=== PATIENT | male | born 1950 | race Caucasian/White ===

== ENCOUNTER → 2023-12-21 13:02 | Outpatient (REF) | payer OTHER, SELFPAY | LOC: HWRAD 13:02 | PROVIDERS: ATTENDING PHYSICIAN Family Medicine | DX: R07.81 Pleurodynia (principal); R10.9 Unspecified abdominal pain | CPT/HCPCS: 71101; 74018 ==

== ENCOUNTER 2023-12-25 19:52 | Inpatient (IN) | payer OTHER, SELFPAY ==
[2023-12-25] VITALS (8 sets, daily range): BP systolic 129–184; BP diastolic 61–85; BMI 28.3; BMI 30.9
[2023-12-25 12:32] LABS: Urine Albumin Trace (Neg - Trace); Urine Bilirubin 1+ (Negative); Urine Character Clear (Clear); Urine Color Amber; Urine Glucose Negative (Negative); Urine Ketone Trace (Negative); Urine Leukocyte 1+ (Negative); Urine Nitrite Negative (Negative); Urine Occult Blood 4+ (Negative); Urine Urobilinogen Negative (Neg - 1+)
[2023-12-25 12:49] LABS: Urine Mucus Many; Urine Red Blood Cell 50-60 /HPF (0-2)
[2023-12-25 12:50] LABS: Urine Bacteria Few (Negative); Urine White Cell 26-30 /HPF (0-5)
--- NOTE | 2023-12-25 13:18 | ED.GENMED ---
History of Present Illness
<DO Mabel Moser Filed: 12/25/23 13:20>
General
Chief Complaint: Flank Pain
Source: patient
Time Seen by Provider: 12/25/23 13:08
History of Present Illness
History of Present Illness:
73-year-old male presents to the emergency room complaining of left-sided flank pain. Patient began having left-sided flank pain about a week ago. Symptoms began in the left lower abdomen and then moved to the left flank. They exist in both areas
at the same time are back and forth. Currently the patient has mild pain. He denies fever, chills, nausea or vomiting. Nothing makes the pain better or worse. Patient seen by his primary care doctor who ordered a urine test. Based on your
testing total to come to the emergency room.
Past History
<DO Mabel Moser Filed: 12/25/23 13:20>
Past History
ED Past Medical History: HTN and Psychiatric (Depression)
ED Past Surgical History: Appendectomy and Other (Gerry hernia repair, Prostatectomy)
Social History
Tobacco: Non-smoker
Alcohol: None
Personal: Single
Living: alone
Phy Exam
<DO Mabel Moser Filed: 12/25/23 13:20>
Physical Exam
Physical Exam:
General: Awake, Alert, Oriented X3. No acute distress.
Vitals: unremarkable
Head: Atraumatic
Eyes: Pupils equal, EOMI
Throat: Airway intact, no exudates
Neck: Trachea midline
Lungs: Clear and equal b/l
Heart: Regular rate, no murmurs
Abd: Soft, Nontender, No pulsatile mass
Back: No significant CVA tenderness to percussion
Neuro: Nonfocal
Skin: Warm, dry, no rash
Extremities: pulses equal b/l, no edema
Course
<Josiah NaveedMarcelle Mittal, DO - Last Filed: 12/25/23 13:20>
Orders/Labs/Results
Orders:
Orders
12/25/23 12:10
Urinalysis Reflex To Culture Urgent
Date Specimen was Collected: 12/25/23
Time Specimen was Collected: 12:06
Urine Microscopic Reflex Cult Urgent
Urine Culture Urgent
LIA Source: U
Specimen Description:
Date Specimen was Collected: 12/25/23
Time Specimen was Collected: 12:06
12/25/23 13:18
CT Abd/pel Without Iv Or Oral Urgent
Comment:
Reason For Exam: left flank pain
12/25/23 13:23
Basic Metabolic Panel Urgent
Complete Blood Count/With Diff Urgent
12/25/23 17:39
Cefepime HCl [Maxipime] 2,000 mg IV NOW STA
12/25/23 17:42
CefTRIAXone [Rocephin] 2,000 mg IV NOW STA
Abnormal Lab Results
12/25/23 12/25/23
12:10 13:23
RBC 4.66 L 10^6/uL
(4.70-6.10)
MPV 11.3 H fL
(7.4-10.4)
Carbon Dioxide 31 H mmol/L
(22-30)
BUN 23 H mg/dl
(9-20)
Glucose 103 H mg/dl
(70-99)
Urine Ketones Trace A
(Negative)
Ur Occult Blood Reflex 4+ A
(Negative)
Urine Bilirubin 1+ A
(Negative)
Leukocyte Esterase Rfl 1+ A
(Negative)
Urine RBC 50-60 A /HPF
(0-2)
Urine WBC (Reflex) 26-30 A /HPF
(0-5)
Urine Bacteria (Reflex) Few A
(Negative)
12/25/23 13:23
12/25/23 13:23
Vital Signs
Initial and Last Documented VS:
Initial Vital Signs
Temp Pulse Resp BP Pulse Ox
97.8 F 71 18 184/84 98
12/25/23 11:46 12/25/23 11:46 12/25/23 11:46 12/25/23 11:46 12/25/23 11:46
Last Documented Vital Signs
Temp Pulse Resp BP Pulse Ox
98.9 F 64 16 133/85 99
12/25/23 17:54 12/25/23 17:54 12/25/23 17:54 12/25/23 17:54 12/25/23 17:54
<Fidel Marquez, DO - Last Filed: 12/25/23 18:11>
Orders/Labs/Results
Orders:
Orders
12/25/23 12:10
Urinalysis Reflex To Culture Urgent
Date Specimen was Collected: 12/25/23
Time Specimen was Collected: 12:06
Urine Microscopic Reflex Cult Urgent
Urine Culture Urgent
LIA Source: U
Specimen Description:
Date Specimen was Collected: 12/25/23
Time Specimen was Collected: 12:06
12/25/23 13:18
CT Abd/pel Without Iv Or Oral Urgent
Comment:
Reason For Exam: left flank pain
12/25/23 13:23
Basic Metabolic Panel Urgent
Complete Blood Count/With Diff Urgent
12/25/23 17:39
Cefepime HCl [Maxipime] 2,000 mg IV NOW STA
12/25/23 17:42
CefTRIAXone [Rocephin] 2,000 mg IV NOW STA
Abnormal Lab Results
12/25/23 12/25/23
12:10 13:23
RBC 4.66 L 10^6/uL
(4.70-6.10)
MPV 11.3 H fL
(7.4-10.4)
Carbon Dioxide 31 H mmol/L
(22-30)
BUN 23 H mg/dl
(9-20)
Glucose 103 H mg/dl
(70-99)
Urine Ketones Trace A
(Negative)
Ur Occult Blood Reflex 4+ A
(Negative)
Urine Bilirubin 1+ A
(Negative)
Leukocyte Esterase Rfl 1+ A
(Negative)
Urine RBC 50-60 A /HPF
(0-2)
Urine WBC (Reflex) 26-30 A /HPF
(0-5)
Urine Bacteria (Reflex) Few A
(Negative)
12/25/23 13:23
12/25/23 13:23
Vital Signs
Initial and Last Documented VS:
Initial Vital Signs
Temp Pulse Resp BP Pulse Ox
97.8 F 71 18 184/84 98
12/25/23 11:46 12/25/23 11:46 12/25/23 11:46 12/25/23 11:46 12/25/23 11:46
Last Documented Vital Signs
Temp Pulse Resp BP Pulse Ox
98.9 F 64 16 133/85 99
12/25/23 17:54 12/25/23 17:54 12/25/23 17:54 12/25/23 17:54 12/25/23 17:54
<Fidel Marquez, DO - Last Filed: 12/25/23 18:11>
MDM/Problems Addressed
Differential Diagnosis Includes:
Urinary tract infection, kidney stone
MDM/Problems Addressed:
73-year-old male with left ureteral calculus, UTI. Patient will likely require stent. Does not appear septic at this time. Admit to hospitalist. Dr. Escalante, urology aware.
Chronic conditions affecting care: HTN, CAD and Cancer (Prostate cancer)
<Fidel Marquez, DO - Last Filed: 12/25/23 18:11>
*Radiology
Radiology exam reviewed: radiology read reviewed (CT abdomen pelvis shows 7 mm left proximal ureteral calculus)
*Pulse Oximetry
Patient hypoxic: no
*Critical Care Note
Total Time (30-74mins, 75-104mins- exclusive of procedures): Not Applicable
<Fidel Marquez, DO - Last Filed: 12/25/23 18:11>
Patient Management
Social determinants of health affecting care: Living situation
Discussion with other providers: Hospitalist and Community Service Officer (urology Dr. Escalante)
Escalation/DeEscalation of care consider admission/obs:
admit indicated
ED Attending Note
<Josiah Mittal DO - Last Filed: 12/25/23 13:20>
-
Portions of this chart may have been created with voice recognition software.� Occasional wrong word or��sound alike� substitutions may have occurred due to the inherent limitations of voice recognition software.
Discharge Plan
Departure
Patient Disposition: Admit
Date of Disposition: 12/25/23
Time of Disposition: 17:38
Admit to: Med/Surg
Presentation/result/management discussed w/ accepting MD/DO: Hospitalist
Patient with high blood pressure during this ER visit?: Yes
Condition: Good
Discharge Problem:
UTI (urinary tract infection), Calculus of proximal left ureter
Prescriptions:
No Action
amlodipine 10 MG tablet
10 mg PO HS
aspirin [Maria L Chewable Aspirin] 81 MG tablet,chewable
81 mg PO DAILY
propranolol 20 MG tablet
20 mg PO BID
hydroxyzine pamoate 25 mg capsule
25 mg PO QIDPRN PRN (Reason: anxiety/sleep)
Praluent Pen 75 mg/mL pen injector
75 mg SC Q2W
Referrals:
Antoni Friedman, DO [Family Provider] -
Interventions
Interventions:
*Risk Screen - Suicide Last Done: 12/25/23 11:46
*General Assessment Last Done: 12/25/23 11:52
*Neglect/Abuse Screening Last Done: 12/25/23 11:46
ED- Fall Risk Assessment Last Done: 12/25/23 12:36
WG-Aggqat-Unhswefpwq Assessment Last Done: 12/25/23 12:36
ED-Male Genitourinary Assessment Last Done: 12/25/23 12:36
Discharge Date and Time
Print Language: NEPALI
[2023-12-25 13:34] LABS: % Basophils 0.4 % (0-2); % Eosinophils 3.1 % (0-6); % Immature Granulocytes 0.1 % (0-0.5); % Monocytes 8.5 % (1.7-9.3); % Neutrophils 65.9 % (42.2-75.2); Absolute Eosinophils 0.2 10^3/uL (0-0.7); Absolute Lymphocytes 1.6 10^3/uL (1.2-3.4); Absolute Monocytes 0.6 10^3/uL (0.1-0.6); Absolute Neutrophils 4.9 10^3/uL (1.4-6.5); Hematocrit 41.6 % (39.0-52.0); Hemoglobin 14.2 g/dL (13.0-18.0); Mean Corp Hgb Conc. 34.1 g/dL (33.0-37.0); Mean Corpuscular Hgb 30.5 pg (27.0-31.0); Mean Corpuscular Volume 89.3 fL (80.0-94.0); Mean Platelet Volume 11.3 fL (7.4-10.4); Nucleated Red Blood Cells % 0 % (-); Platelet Count 222 10^3/uL (130-400); Red Blood Cell Count 4.66 10^6/uL (4.70-6.10); Red Cell Dist. Width 13.8 % (11.5-14.5); White Blood Cell Count 7.4 10^3/uL (4.8-10.8)
[2023-12-25 13:47] LABS: Blood Urea Nitrogen 23 mg/dl (9-20); Calcium 9.1 mg/dl (8.4-10.2); Carbon Dioxide 31 mmol/L (22-30); Chloride 103 mmol/L (98-107); Glucose 103 mg/dl (70-99); Potassium 4.5 mmol/L (3.5-5.1); Sodium 142 mmol/L (135-145); eGFR > 60.00
[2023-12-25] MEDS: ROCEPHIN 2000 MG IV (17:47)
[2023-12-25] MEDS: MAXIPIME 2000 MG IV (17:52)
--- NOTE | 2023-12-25 19:03 | HPS.HSE ---
Family Physician
-
Family Physician: Antoni Friedman
Chief Complaint
-
left flank pain
History of Present Illness
73-year-old male past medical history of CAD status post CABG in 2018 hypertension, depression presenting with left-sided flank pain starting a week ago. Pain started in the left lower abdomen then moved to the left flank. He denies fevers or
chills, nausea or vomiting. Denies any burning with urination or frequency or blood in the urine.
Denies any smoking or alcohol use.
Medical History
Past Medical History
Past Medical History: Reports Other ( CAD status post CABG in 2018 hypertension, depression)
Past Surgical History: Reports Other (Appendectomy and Other (Gerry hernia repair, Prostatectomy), CABG )
Social History
Tobacco: Non-smoker
Alcohol: None
Drug: None
Family History
Family History: Not pertinent
Allergies / Home Medications
Allergies reflects when Allergies were last updated in [employer].
Home Medications with original date entered in [employer]
Allergy/Medication List:
Allergies
Allergy/AdvReac Type Severity Reaction Status Date / Time
No Known Allergies Allergy Verified 12/25/23 12:17
Home Medications
amlodipine 10 mg tablet 10 mg PO HS 10/22/17
aspirin 81 mg chewable tablet (Maria L Chewable Low Dose Aspirin) 81 mg PO DAILY 10/22/17
propranolol 20 mg tablet 20 mg PO BID 10/22/17
alirocumab 75 mg/mL subcutaneous pen injector (Praluent Pen) 75 mg SC Q2W 12/25/23
hydroxyzine pamoate 25 mg capsule 25 mg PO QIDPRN PRN anxiety/sleep 12/25/23
Review of Systems
-
History Source: Patient
A 12 point ROS was completed and negative except as noted: Yes
Constitutional: Reports No Symptoms
EENT: Reports No Symptoms
Respiratory: Reports No Symptoms
Cardiac: Reports No Symptoms
Abdomen/GI: Reports See HPI
: Reports See HPI
Musculoskeletal: Reports No Symptoms
Skin: Reports No Symptoms
Neurological: Reports No Symptoms
Endocrine: Reports No Symptoms
Hematologic/Lymphatic: Reports No Symptoms
Psych: Reports No Symptoms
Physical Exam
Vital Signs
Vital Signs
Temp Pulse Resp BP Pulse Ox
98.9 F 64 16 133/85 99
12/25/23 17:54 12/25/23 18:00 12/25/23 18:00 12/25/23 18:00 12/25/23 18:00
Physical Exam
General: Well Developed, Well Nourished and No Apparent Distress
HEENT: NormoCephalic, Moist mucous membranes and Atraumatic
Respiratory: Clear
Cardiac: S1/S2 and Regular Rhythm; No Murmur or Rub
GI: Soft, Non Tender, Non Distended and Normal Bowel Sounds; No Organomegaly
Rectal: Deferred by Provider
Musculoskeletal: No Clubbing, No Cyanosis and No Edema
Skin: No Rash
Neuro: Nonfocal/grossly intact
Laboratory Results
-
12/25/23 13:23
12/25/23 13:23
Data Reviewed
-
Lab Data: Labs Reviewed by me
Old Records: Reviewed
Impression/Plan
-
IMPRESSION:
PLAN:
# Obstructive ureteral calculus
-7 mm partial obstructing calculus in the proximal left ureter
-IV fluids
-Ceftriaxone
-N.p.o. past midnight
-Urology to take the OR tomorrow
-Hold aspirin
-Toradol, Dilaudid as needed
CAD status post CABG in 2018
-Hold aspirin
Essential hypertension
-Continue amlodipine, propranolol
Depression
Hyperlipidemia
-On alirocumab
Full code
DVT prophylaxis�SCDs
N.p.o. past midnight
[2023-12-25] MEDS: NSS 1000 IV (21:10)
[2023-12-25] MEDS: ATARAX 25 MG PO (21:49)
[2023-12-25] MEDS: NORVASC 10 MG PO (21:49)
[2023-12-25] MEDS: INDERAL 20 MG PO (21:49)
--- NOTE | 2023-12-25 23:21 | PTCARENOTE ---
Received pt from ER @ 1999. Pt AAOx3, VSS, ambulatory in room. Oriented to room, call kurtz and plan of care.
[2023-12-26] VITALS (11 sets, daily range): BP systolic 104–155; BP diastolic 50–89
[2023-12-26] MEDS: NSS 1000 IV (05:49)
[2023-12-26 07:03] LABS: % Basophils 0.3 % (0-2); % Eosinophils 3.5 % (0-6); % Immature Granulocytes 0.2 % (0-0.5); % Lymphocytes 33.3 % (20.5-51.1); % Monocytes 11.2 % (1.7-9.3); % Neutrophils 51.5 % (42.2-75.2); Absolute Eosinophils 0.2 10^3/uL (0-0.7); Absolute Monocytes 0.7 10^3/uL (0.1-0.6); Absolute Neutrophils 3.1 10^3/uL (1.4-6.5); Hematocrit 37.6 % (39.0-52.0); Hemoglobin 12.9 g/dL (13.0-18.0); Mean Corp Hgb Conc. 34.3 g/dL (33.0-37.0); Mean Corpuscular Hgb 30.2 pg (27.0-31.0); Mean Corpuscular Volume 88.1 fL (80.0-94.0); Mean Platelet Volume 11.8 fL (7.4-10.4); Nucleated Red Blood Cells % 0 % (-); Platelet Count 191 10^3/uL (130-400); Red Blood Cell Count 4.27 10^6/uL (4.70-6.10); Red Cell Dist. Width 13.8 % (11.5-14.5)
[2023-12-26 07:34] LABS: ALT (SGPT) 16 U/L (0-50); AST (SGOT) 21 U/L (17-59); Albumin 3.8 g/dl (3.5-5.0); Alkaline Phosphatase 84 U/L (38-126); Blood Urea Nitrogen 16 mg/dl (9-20); Calcium 8.8 mg/dl (8.4-10.2); Carbon Dioxide 26 mmol/L (22-30); Chloride 106 mmol/L (98-107); Estimated Creatinine Clearance 88 ml/min; Glucose 88 mg/dl (70-99); Potassium 3.8 mmol/L (3.5-5.1); Sodium 143 mmol/L (135-145); Total Bilirubin 0.6 mg/dl (0.2-1.3); Total Protein 6.2 g/dl (6.3-8.2); eGFR > 60.00
[2023-12-26] MEDS: INDERAL 20 MG PO ×2 (08:15→20:58)
[2023-12-26] MEDS: ATIVAN 0.5 MG PO (10:13)
--- NOTE | 2023-12-26 11:12 | W.SUR.PREOP ---
Pre-Operative Surgical Note
-
I have examined this patient prior to the performance of the scheduled procedure.
The patient's condition is unchanged from the time of the current History and
Physical and the patient is able to undergo the scheduled procedure.
Obstructing proximal LEFT ureteral stone w/o overt hydronephrosis.
Suspected UTI based on abnormal UA (pyuria).
- Surgical consent signed on chart
- LEFT laterality marked
- To OR for cysto + LEFT stent placement
- Continue IV Ceftriaxone
D/w patient in preop.
--- NOTE | 2023-12-26 12:14 | W.IMMPOSTOP ---
Surgical Immed Post Op Note
-
Primary Surgeon: Ava
Pre-op Diagnosis: Obstructing proximal left ureteral stone, cUTI
Post-op Diagnosis: Same
Procedure Performed: cysto + left stent placement
Anesthesia Type: LMA
Specimen / Cultures: None/None
Estimated Blood Loss: Negligible
Drains: 4.7Fr x 26 cm JJ left ureteral stent
Complications: None
Operative Findings: final KUB and cysto confirming excellent stent position
--- NOTE | 2023-12-26 12:41 | W.PN.HOSP.TC ---
Today's Communication/Plan
-
continue Rocephin for now
potential dc tomorrow on oral abx
Assessment / Plan
Assessment / Plan
# Obstructive ureteral calculus
-7 mm partial obstructing calculus in the proximal left ureter
CT scan: 1). There is a 7 mm partially obstructing calculus in the proximal left ureter without significant associated hydronephrosis
2). There are bilateral renal cysts
3). There is biliary sludge in the gallbladder
4). There is multilevel lumbar degenerative disc disease
-IV fluids
-Ceftriaxone
-resume diet post procedure
-Discussed with Dr. Escalante, OR just completed, underwent cysto and left stent placement
-Hold aspirin
-Toradol, Dilaudid as needed
Pt was very apprehensive prior to procedure and ordered 1 dose of oral Ativan
CAD status post CABG in 2018
-Hold aspirin
Hx of prostate cancer
s/p radical prostatectomy 2000
Essential hypertension
-Continue amlodipine, propranolol
Depression
Hyperlipidemia
-On alirocumab
Full code
DVT prophylaxis�SCDs
continue Rocephin
Anticipated Discharge: Within 24 hours
Subjective/Interval History
-
Date of Service: December 26, 2023
Awake, alert conversant
Objective Data
-
Labs:
Laboratory Results
12/26/23
06:11
WBC 6.0
Hgb 12.9 L
Hct 37.6 L
Plt Count 191
Sodium 143
Potassium 3.8
Chloride 106
Carbon Dioxide 26
BUN 16
Creatinine 0.8
Glucose 88
Calcium 8.8
Total Bilirubin 0.6
AST 21
ALT 16
Alkaline Phosphatase 84
Vital Signs:
Vital Signs
Temp Pulse Resp BP Pulse Ox
97.0 F 68 18 146/77 99
12/26/23 12:20 12/26/23 08:15 12/26/23 07:00 12/26/23 08:15 12/26/23 08:25
I&O
12/25/23 12/26/23 12/27/23
06:59 06:59 06:59
Intake Total 120 / 120 30 / 30
Balance 120 / 120 30 / 30
Review of Systems
-
History Source: Patient, Physician (reviewed with Dr. Escalante) and Coordinated Provider
Constitutional: Denies Fever
EENT: Reports No Symptoms Reported
Respiratory: Reports No Symptoms; Denies Cough or Trouble Breathing
Cardiac: Reports No Symptoms
Abdomen/GI: Reports Abdominal Pain (left lower)
Genitourinary: Reports Flank Pain; Denies Dysuria or Frequency
Physical Exam
-
General: Well Developed, Well Nourished and No Apparent Distress
HEENT: Atraumatic and Moist Mucous Membranes
Respiratory: Clear to Auscultation and Rales (bibasilar atelectatic rales); Negative Wheezes or Rhonchi
Cardiac: Regular Rhythm and S1/S2
GI: Soft, Nontender, Nondistended and Normal Bowel Sounds
Musculoskeletal: No Clubbing, No Cyanosis and No Edema
[2023-12-26] MEDS: DETROL LA 4 MG PO (12:56)
[2023-12-26] MEDS: Pyridium 200 MG PO (12:57)
--- NOTE | 2023-12-26 13:50 | PTCARENOTE ---
Received pt from PACU at 1315. Pt OOB to bathroom, voided orange colored urine. No c/o pain or discomfort at this time. Ordering food. Will continue to monitor.
[2023-12-26] MEDS: ROCEPHIN 1000 MG IV (17:08)
[2023-12-26] MEDS: STERILE WATER FOR INJECTION 10 ML IV (17:09)
[2023-12-26] MEDS: NORVASC 10 MG PO (20:59)
[2023-12-26] MEDS: ATARAX 25 MG PO (21:05)
--- NOTE | 2023-12-27 00:50 | PTCARENOTE ---
Pt c/o of having to use effort mid-way through void. Bladder scan indicated 0 mls retained. Pt encouraged to drink water and ambulate as tolerated.
[2023-12-27 03:21] VITALS: BP 152/74
[2023-12-27 07:26] LABS: % Basophils 0.1 % (0-2); % Immature Granulocytes 0.7 % (0-0.5); % Lymphocytes 9.6 % (20.5-51.1); % Monocytes 6.9 % (1.7-9.3); % Neutrophils 82.7 % (42.2-75.2); Absolute Immature Granulocytes 0.1 10^3/uL (0-0.05); Absolute Monocytes 0.7 10^3/uL (0.1-0.6); Absolute Neutrophils 8.7 10^3/uL (1.4-6.5); Hematocrit 39.6 % (39.0-52.0); Hemoglobin 13.2 g/dL (13.0-18.0); Mean Corp Hgb Conc. 33.3 g/dL (33.0-37.0); Mean Corpuscular Hgb 29.1 pg (27.0-31.0); Mean Corpuscular Volume 87.2 fL (80.0-94.0); Mean Platelet Volume 11.9 fL (7.4-10.4); Nucleated Red Blood Cells % 0 % (-); Platelet Count 224 10^3/uL (130-400); Red Blood Cell Count 4.54 10^6/uL (4.70-6.10); Red Cell Dist. Width 13.5 % (11.5-14.5); White Blood Cell Count 10.5 10^3/uL (4.8-10.8)
[2023-12-27 07:38] VITALS: BP 137/66
[2023-12-27 07:52] LABS: Blood Urea Nitrogen 25 mg/dl (9-20); Calcium 9.2 mg/dl (8.4-10.2); Carbon Dioxide 27 mmol/L (22-30); Chloride 101 mmol/L (98-107); Estimated Creatinine Clearance 78 ml/min; Glucose 132 mg/dl (70-99); Potassium 4.7 mmol/L (3.5-5.1); Sodium 143 mmol/L (135-145); eGFR > 60.00
[2023-12-27] MEDS: INDERAL 20 MG PO (08:29)
--- NOTE | 2023-12-27 09:19 | W.PN.HOSP.TC ---
Today's Communication/Plan
-
Discharge planning today
Assessment / Plan
Assessment / Plan
Physical exam:
General: Well Developed, Well Nourished and No Apparent Distress
HEENT: Normocephalic, Atraumatic and Moist Mucous Membranes
Respiratory: Clear to Auscultation; Negative Wheezes, Rales or Rhonchi
Cardiac: Regular Rhythm and S1/S2
GI: Soft, Nontender and Nondistended
Musculoskeletal: No Clubbing, No Cyanosis and No Edema
Neuro: Awake, Alert and Oriented
Psych: Calm
A/P:
# Obstructive ureteral calculus
-7 mm partial obstructing calculus in the proximal left ureter
CT scan: 1). There is a 7 mm partially obstructing calculus in the proximal left ureter without significant associated hydronephrosis
2). There are bilateral renal cysts
3). There is biliary sludge in the gallbladder
4). There is multilevel lumbar degenerative disc disease
-IV fluids, can be stopped today.
-Ceftriaxone changed to oral cefuroxime today.
-resume diet post procedure
-Discussed with Dr. Escalante, OR just completed, underwent cysto and left stent placement. Discussed with urology again today and there was apparent purulent material when he was taken to the OR although urine culture is negative so we will continue
with a short course of oral antibiotics. Urology cleared him for discharge today
-Held aspirin but can resume now upon discharge today
-Toradol, Dilaudid as needed--> has not required pain medications today
Pt was very apprehensive prior to procedure and ordered 1 dose of oral Ativan--> has not required any more benzodiazepines.
CAD status post CABG in 2018
-Held aspirin but can resume now upon discharge today
Hx of prostate cancer
s/p radical prostatectomy 2000
Essential hypertension
-Continue amlodipine, propranolol
Depression
Hyperlipidemia
-On alirocumab
Full code
DVT prophylaxis�SCDs
Anticipated Discharge: Today
Subjective/Interval History
-
Date of Service: December 27, 2023
No flank pain. No fevers. Doing well overall
Objective Data
-
Labs:
Laboratory Results
12/27/23
06:09
WBC 10.5
Hgb 13.2
Hct 39.6
Plt Count 224
Sodium 143
Potassium 4.7
Chloride 101
Carbon Dioxide 27
BUN 25 H
Creatinine 0.9
Glucose 132 H
Calcium 9.2
Vital Signs:
Vital Signs
Temp Pulse Resp BP Pulse Ox
98.3 F 48 20 137/66 100
12/27/23 07:38 12/27/23 07:38 12/27/23 07:38 12/27/23 07:38 12/27/23 08:20
I&O
12/26/23 12/27/23 12/28/23
06:59 06:59 06:59
Intake Total 120 / 120 2385 / 2385
Output Total 200 / 200
Balance 120 / 120 2185 / 2185
--- NOTE | 2023-12-27 13:28 | W.DCSUMMARY ---
Discharge Summary
Discharge Data
Date of Admission: 12/25/23
Date of Discharge: 12/27/23
-
Pending Results: No
Hospital Course
Patient is 73 years old male with history of CAD, hypertension, depression came into the hospital with left flank pain. He was found to have a left kidney stone. Urology consulted. He was started on antibiotics. Urology took him to the OR and
did cystoscopy and left stent ureteral placement on 12/25. Urology noticed some possible purulent material so recommended antibiotics to continue. Urine culture has no growth. Patient is hemodynamically stable and afebrile and no leukocytosis.
Patient feels better postprocedure. Urology cleared him for discharge. He will be discharged in stable condition today.
Discharge duration: 34 minutes
Discharge Plan
-
Patient Disposition: Home (Routine Discharge)
Discharge Diagnosis/Procedures: Obstructive ureteral calculus. Probable urinary tract infection.
Diet: Low Cholesterol
Activity: As tolerated
Blood Work: Please PCP to order CBC, BMP within 1 week
Referrals:
Rudi Escalante MD [Active] - (Please call [facility] to make a preop visit with Dr. Escalante within 2 weeks to discuss/schedule your outpatient kidney stone surgery. )
Antoni Friedman, [Family Provider] - in less than 1 week
Prescriptions:
New
cefuroxime axetil 500 mg Tablet
500 mg PO BID 5 Days Qty: 10 0RF
Continued
amlodipine 10 MG tablet
10 mg PO HS
aspirin [Maria L Chewable Aspirin] 81 MG tablet,chewable
81 mg PO DAILY
propranolol 20 MG tablet
20 mg PO BID
hydroxyzine pamoate 25 mg capsule
25 mg PO QIDPRN PRN (Reason: anxiety/sleep)
Praluent Pen 75 mg/mL pen injector
75 mg SC Q2W
Discharge Orders:
Discharge Patient (As Directed); Ordered 12/27/23
Ordered By: Gurwinder Monson
Discharge Date and Time
Discharge Date/Time: 12/27/23 14:30
Print Language: JAPANESE
[2023-12-27] MEDS: CEFTIN 500 MG PO (14:04)
--- NOTE | 2023-12-27 14:06 | CM ---
Pt seen at bedside. Pt lives w/ friend in a [facility]
Pt prev. independent in the home
Pt denies any DME.
Denies SNF in the past
Denies VN/PT in the past
Denies financial insecurities
PCP, contacts and pharmacy confirmed
IMM reviewed, pt given copy
Advanced directive provided
Pt confirmed he will drive himself home at d/c
Plan: Home no needs
== END 2023-12-27 14:30 | disposition home or self-care (01) | DRG 660 ==
LOC: 4 WEST ACU 19:52
PROVIDERS: Internal Medicine; Surgery; ADMITTING PHYSICIAN Hospitalist; ATTENDING PHYSICIAN Hospitalist; EMERGENCY PHYSICIAN Emergency Medicine; FAMILY PHYSICIAN Family Medicine
PROC: 0T778DZ Dilation of Left Ureter with Intraluminal Device, Via Natural or Artificial Opening Endoscopic (ICD-10-PCS; 2023-12-26)
PROC: BT041ZZ Plain Radiography of Kidneys, Ureters and Bladder using Low Osmolar Contrast (ICD-10-PCS; 2023-12-26)
DX: N20.1 Calculus of ureter (principal); N39.0 Urinary tract infection, site not specified; I10 Essential (primary) hypertension; F32.A Depression, unspecified; E78.5 Hyperlipidemia, unspecified; I25.10 Atherosclerotic heart disease of native coronary artery without angina pectoris
CPT/HCPCS: 74018; 74176; 76000; 80048; 80053; 81003; 81015; 85025; 87086; 96374; 99284; C2617

== ENCOUNTER → 2024-01-13 11:15 | Outpatient (REF) | payer OTHER, SELFPAY | LOC: CLAB 11:15 | PROVIDERS: ATTENDING PHYSICIAN Surgery | DX: N13.2 Hydronephrosis with renal and ureteral calculous obstruction (principal) | CPT/HCPCS: 82365 ==

== ENCOUNTER → 2024-03-09 10:49 | Outpatient (REF) | payer OTHER, SELFPAY | LOC: HWRAD 10:49 | PROVIDERS: ATTENDING PHYSICIAN Surgery; FAMILY PHYSICIAN Family Medicine | DX: N13.2 Hydronephrosis with renal and ureteral calculous obstruction (principal) | CPT/HCPCS: 76775 ==

== ENCOUNTER → 2024-04-14 09:43 | Outpatient (REF) | payer OTHER, SELFPAY ==
[2024-04-16 20:18] LABS: PSA, Ultrasensitive 0.58 ng/mL (0.00-4.00)
== END ==
LOC: HWLAB 09:43
PROVIDERS: ATTENDING PHYSICIAN Surgery; FAMILY PHYSICIAN Family Medicine
DX: C61 Malignant neoplasm of prostate (principal)
CPT/HCPCS: 36415; 84153

== ENCOUNTER → 2024-05-29 16:29 | Outpatient (REF) | payer OTHER, SELFPAY | LOC: MRI 3T 16:29 | PROVIDERS: ATTENDING PHYSICIAN Radiology Radiation Oncology; FAMILY PHYSICIAN Family Medicine | DX: C61 Malignant neoplasm of prostate (principal) | CPT/HCPCS: 72197; A9575 ==

== ENCOUNTER 2024-06-06 06:14 | Day surgery (SDC) | payer OTHER, SELFPAY | END 2024-06-06 15:26 | disposition home or self-care (01) | LOC: GI 06:14 | PROVIDERS: ATTENDING PHYSICIAN Surgery | DX: Z12.11 Encounter for screening for malignant neoplasm of colon (principal); K57.30 Diverticulosis of large intestine without perforation or abscess without bleeding; K63.5 Polyp of colon | CPT/HCPCS: 45380; 88305 ==

== ENCOUNTER → 2024-06-08 10:05 | Outpatient (REF) | payer OTHER, SELFPAY ==
[2024-06-08 13:27] LABS: Blood Urea Nitrogen 27 mg/dl (9-20); Calcium 9.2 mg/dl (8.4-10.2); Carbon Dioxide 28 mmol/L (22-30); Chloride 106 mmol/L (98-107); Glucose 105 mg/dl (70-99); Sodium 143 mmol/L (135-145); eGFR > 60.00
== END ==
LOC: HWLAB 10:05
PROVIDERS: ATTENDING PHYSICIAN Internal Medicine Cardiovascular Disease; FAMILY PHYSICIAN Family Medicine
DX: I10 Essential (primary) hypertension (principal)
CPT/HCPCS: 36415; 80048

== ENCOUNTER → 2024-06-27 17:12 | Outpatient (REF) | payer OTHER, SELFPAY | LOC: MRI 3T 17:12 | PROVIDERS: ATTENDING PHYSICIAN Radiology Radiation Oncology; FAMILY PHYSICIAN Family Medicine | DX: K86.9 Disease of pancreas, unspecified (principal) | CPT/HCPCS: 74183; A9575 ==

== ENCOUNTER 2024-11-15 06:17 | Day surgery (SDC) | payer OTHER, SELFPAY ==
[2024-11-15 11:07] VITALS: BMI 29.7
[2024-11-15 11:08] VITALS: BMI 29.7
[2024-11-15 11:09] VITALS: BP 181/78
[2024-11-15 14:21] VITALS: BP 119/57
[2024-11-15 14:30] VITALS: BP 125/63
[2024-11-15 14:45] VITALS: BP 128/63
[2024-11-15 15:00] VITALS: BP 148/61
== END 2024-11-15 15:20 | disposition home or self-care (01) ==
LOC: GI 06:17
PROVIDERS: ATTENDING PHYSICIAN Internal Medicine Gastroenterology
DX: K86.2 Cyst of pancreas (principal); K86.9 Disease of pancreas, unspecified; R93.3 Abnormal findings on diagnostic imaging of other parts of digestive tract
CPT/HCPCS: 43242; 88173

== ENCOUNTER → 2024-11-21 10:01 | Outpatient (REF) | payer OTHER, SELFPAY ==
[2024-11-21 12:59] LABS: PSA, Total - Diagnostic < 0.06 ng/ml (0.0-4.0)
== END ==
LOC: HWLAB 10:01
PROVIDERS: ATTENDING PHYSICIAN Family Medicine Geriatric Medicine; FAMILY PHYSICIAN Family Medicine
DX: C61 Malignant neoplasm of prostate (principal); Z85.46 Personal history of malignant neoplasm of prostate
CPT/HCPCS: 36415; 84153